=== PATIENT | female | born 1950 | race African-American/Black ===

== ENCOUNTER 2024-01-16 11:38 | Emergency (ER) | payer OTHER ==
[2024-01-16 11:55] VITALS: TEMP 98.6; BMI 39.9
[2024-01-16 13:17] LABS: BASO % 0.9 % (0-2.0); HEMATOCRIT 37.6 % (32.4-45.2); HEMOGLOBIN 12.2 GM/dL (10.7-15.3); LYMPH % 20.5 % (8-40); MCH 29.3 pg (25.7-33.7); MCHC 32.5 g/dl (32.0-36.0); MEAN CELL VOLUME 90.3 fl (80-96); MEAN PLT VOLUME 8.5 fl (7.5-11.1); MONO % 7.6 % (3.8-10.2); PLATELET COUNT 291 10^3/uL (134-434); RBC 4.16 M/mm3 (3.60-5.2); RDW 14.1 % (11.6-15.6)
[2024-01-16 13:20] LABS: INR 0.97 (0.83-1.09); PROTHROMBIN TIME (PATIENT) 11.2 SEC (9.7-13.0)
[2024-01-16 13:47] LABS: POTASSIUM 4.1 mmol/L (3.5-5.1)
[2024-01-16 13:55] LABS: ALBUMIN 3.9 g/dl (3.4-5.0); BLOOD UREA NITROGEN 9.6 mg/dL (7-18)
[2024-01-16 13:58] LABS: CREATININE 0.8 mg/dL (0.55-1.3)
[2024-01-16 13:59] LABS: BILIRUBIN,TOTAL 0.7 mg/dL (0.2-1); TOT PROT 6.8 g/dl (6.4-8.2)
[2024-01-16 14:01] LABS: CALCIUM 9.3 mg/dL (8.5-10.1)
[2024-01-16 14:31] LABS: HIV INTERPRETATION NEGATIVE (NEGATIVE)
[2024-01-16] MEDS: RIVAROXABAN 10 MG TABLET PO SCH (16:11)
[2024-01-16 17:03] VITALS: BP 160/68; PULSE 86; RESP 20
[2024-01-16] MEDS: RIVAROXABAN 10 MG TABLET PO ONE (17:33)
== END 2024-01-16 17:34 | disposition home or self-care (01) ==
LOC: JER 11:38
DX: M79.89 Other specified soft tissue disorders (principal); I82.813 Embolism and thrombosis of superficial veins of lower extremities, bilateral
CPT/HCPCS: 36415; 80053; 85025; 85379; 85610; 86803; 87389; 93005; 93010; 99284-25

== ENCOUNTER → 2025-01-23 | Day surgery (SDC) | payer OTHER | END | disposition home or self-care (01) | LOC: JRADIR 09:45 | PROVIDERS: ATTEND Nurse Practitioner Family | PROC: 0H9U3ZX Drainage of Left Breast, Percutaneous Approach, Diagnostic (ICD-10-PCS; principal; 2025-01-23) | DX: N60.12 Diffuse cystic mastopathy of left breast (principal); R92.0 Mammographic microcalcification found on diagnostic imaging of breast | CPT/HCPCS: 19083; 76942-TC; 77065-TC; 87899; A4648 ==